=== PATIENT | male | born 1970 | race Caucasian/White ===

== ENCOUNTER 2024-09-07 08:24 | Outpatient (CLI) | payer BC, SELFPAY ==
--- NOTE | ~2024-09-07 | MR_ITS ---
EXAMINATION: MR elbow RT wo con DATE: 09/07/2024 09:13 INDICATION: Right elbow pain TECHNIQUE: Magnetic resonance imaging (MRI) of the right elbow was performed without intravenous cont rast. Sequences included coronal, axial, and sagittal PD-weighted FS FSE and coronal, axial, and sagi ttal PD-weighted FSE. COMPARISON: None FINDINGS: Osseous/other: Normal alignment. Bone marrow signal is normal. No fracture. There is a multilobulated likely complex cystic PD hyperintense lesion with multiple lower hypointense internal septations and a few internal nodular hypointense regions positioned along the posterior margin of the lateral epicondyle. The les ion measures 2.9 cm proximal to distal and up to 2.3 x 2.0 cm in maximal transaxial dimensions. The e picenter of the lesion is within the distal triceps muscle belly. The lesion chronically erodes anter iorly into the distal humerus at 2 locations, both with well-defined low signal intensity cortical ma rgins with corresponding curvilinear sclerosis along the marginal erosions evident on the prior radio graphs. The corticated margins favors a chronic indolent process. Tendons: Triceps, biceps brachii and brachialis tendons are normal. Mild tendinopathy without discrete tear o f both the common flexor tendon wad and common extensor tendon wad. Ligaments: The medial collateral ligament complex is normal. There is thickening and increased signal of the rad ial collateral ligament with small defect at the anterior portion of the ligament and without signifi cant surrounding edema consistent with sequela of chronic partial tear. The annular ligament and late ral ulnar collateral ligament remain normal. Cubital tunnel: Cubital tunnel is unremarkable with normal signal and caliber of the ulnar nerve. Fluid: Physiologic amount of fluid the elbow joint. IMPRESSION: 1. 2.9 x 2.3 x 2.0 cm likely complex cystic mass in the distal triceps muscle belly which chronically erodes into the posterior aspect of the lateral epicondyle. Differential would include pigmented peg lonodular synovitis, synovial osteochondromatosis, inflammatory arthritides including gout or rheumat oid, focal synovitis, ganglion cyst, synovial hemangioma or more rarely neoplasm such as synovial eva coma. 2. 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 3. Mild tendinopathy without discrete tear at the common flexor and extensor tendon wads. Reviewed, dictated and finalized at location B. [employer] IMPRESSION: 1. 2.9 x 2.3 x 2.0 cm likely complex cystic mass in the distal triceps muscle b mary which chronically erodes into the posterior aspect of the lateral epicondy le. Differential would include pigmented villonodular synovitis, synovial osteo chondromatosis, inflammatory arthritides including gout or rheumatoid, focal sy novitis, ganglion cyst, synovial hemangioma or more rarely neoplasm such as syn ovial sarcoma. 2. 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 3. Mild tendinopathy without discrete tear at the common flexor and extensor te donavon boswell.
== END 2024-09-07 08:25 | disposition home or self-care (01) ==
LOC: GOSHIMG 08:26
DX: R22.31 Localized swelling, mass and lump, right upper limb (principal); M67.821 Other specified disorders of synovium, right elbow
CPT/HCPCS: 73221